=== PATIENT | female | born 1995 | race Hispanic/Latino ===

== ENCOUNTER 2016-09-13 19:19 | Emergency (ER) | payer OTHER ==
[~2016-09-13] VITALS: Ht 160 cm; Wt 53.1 kg
== END 2016-09-13 19:34 | disposition home or self-care (01) ==
LOC: ED 19:19
DX: S61.217A Laceration without foreign body of left little finger without damage to nail, initial encounter (principal); W27.4XXA Contact with kitchen utensil, initial encounter
CPT/HCPCS: 99281